=== PATIENT | male | born 1980 | race American Indian/Alaskan Native ===

== ENCOUNTER 2018-10-14 16:42 | Emergency (ER) | payer SELFPAY ==
[2018-10-14] MEDS ORDERED: Sodium Chloride 0.9% 1,000 ML IV ONE (16:58)
[2018-10-14 18:07] LABS: ANION GAP 14.6; CHLORIDE,CL 102 mmol/L (101-111); SODIUM,NA 135 mmol/L (135-145)
[2018-10-14] MEDS ORDERED: Iopamidol 612 MG/ML 100 ML Bottle IVPUSH ONE (18:24)
--- NOTE | 2018-10-14 19:06 | EDM.PDOC ---
ED HPI GENERAL MEDICAL PROBLEM - General Chief Complaint: Skin Complaint Stated Complaint: MAY HAVE INFECTION IN ARM Time Seen by Provider: 10/14/18 19:43 Source of Information: Reports: Patient History Limitations: Reports: No Limitations - History of Present Illness INITIAL COMMENTS - FREE TEXT/NARRATIVE: c/o left forearm infection worsening past few days. Left Arm Pain Score (Numeric/FACES): 8 - Related Data Allergies Allergy/AdvReac Type Severity Reaction Status Date / Time amoxicillin Allergy Other Verified 10/14/18 16:55 Social & Family History - Tobacco Use Smoking Status *Q: Current Every Day Smoker Years of Tobacco use: 20 Packs/Tins Daily: 1 - Recreational Drug Use Recreational Drug Use: Yes Drug Use in Last 12 Months: Yes Recreational Drug Type: Reports: Methamphetamine Recreational Drug Use Frequency: Weekly Recreational Drug Last Use: 10/11/18 ED ROS GENERAL - Review of Systems Review Of Systems: ROS reveals no pertinent complaints other than HPI. ED EXAM, SKIN/RASH Exam: See Below Exam Limited By: No Limitations General Appearance: Alert, WD/WN, Mild Distress, Moderate Distress, Other (pain) Eye Exam: Bilateral Eye: PERRL (pupils ER @ 4mm) Ears: Hearing Grossly Normal Throat/Mouth: Normal Voice, No Airway Compromise Head: Atraumatic Neck: Non-Tender, Full Range of Motion Respiratory/Chest: No Respiratory Distress Cardiovascular: Regular Rate, Rhythm GI/Abdominal: Soft, Non-Tender Extremities: Arm Pain, Limited Range of Motion, Increased Warmth, Redness, Other (left forearm cellulitis with abscess & lymphangitis, NV nwl) Neurological: Alert, Oriented, Normal Cognition, Normal Gait, No Motor/Sensory Deficits Psychiatric: Tearful Skin: Warm, Dry, Normal Color Location, Skin: Upper Extremity, Left Associated features: Warmth, Tenderness, Swelling, Induration, Lymphangitis, Inflammation, Weeping Lymphatic: No Adenopathy ED SKIN PROCEDURES - I&D Site: left forearm Skin Prep: Providone-Iodine (Betadine) Local Anesthesia: Lidocaine: Other (ethyl spray) Area Incised With: 11 Blade Drainage: Purulent, Moderate Amount Probed to Break Up Loculations: No Packed With: None Sterile Dressinx4(s) Complications: No Course - Vital Signs Last Recorded V/S: Last Vital Signs Temp 36.8 C 10/14/18 18:24 Pulse 85 10/14/18 18:24 Resp 18 06/28/19 18:24 BP 144/78 H 10/14/18 18:24 Pulse Ox 99 10/14/18 18:24 - Orders/Labs/Meds Orders: Active Orders 24 hr Category Date Time Status Upper Extremity w Cont Lt [CT] Urgent Exams 10/14/18 18:22 Ordered CULTURE BLOOD [BC] Stat Lab 10/14/18 16:59 Ordered CULTURE BLOOD [BC] Stat Lab 10/14/18 17:39 Results CULTURE WOUND [RM] Stat Lab 10/14/18 18:50 Received Morphine Med 10/14/18 19:40 Once 2 mg IVPUSH ONETIME ONE Ondansetron [Zofran] Med 10/14/18 19:40 Once 4 mg IV ONETIME ONE Vancomycin 1,500 mg Med 10/14/18 18:25 Active Sodium Chloride 0.9% [Normal Saline] 500 ml IV ONETIME Blood Culture x2 Reflex Set [OM.PC] Stat Oth 10/14/18 16:58 Ordered Medication Orders Vancomycin HCl 1,500 mg/ (Sodium Chloride) 500 mls @ 333.333 mls/hr IV ONETIME ONE Stop: 10/14/18 19:54 Labs: Laboratory Tests 10/14/18 10/14/18 10/14/18 Range/Units 17:39 17:39 17:39 WBC 10.2 H (5.0-10.0) 10^3/uL RBC 5.29 (4.6-6.2) 10^6/uL Hgb 15.7 (14.0-18.0) g/dL Hct 45.4 (40.0-54.0) % MCV 85.8 (80-100) fL MCH 29.7 (27.0-34.0) pg MCHC 34.6 (33.0-35.0) g/dL Plt Count 251 (150-450) 10^3/uL Neut % (Auto) 78.2 H (42.2-75.2) % Lymph % (Auto) 11.4 L (20.5-50.1) % [place] % (Auto) 8.3 H (2-8) % Eos % (Auto) 1.9 (1.0-3.0) % Baso % (Auto) 0.2 (0.0-1.0) % Sodium 135 (135-145) mmol/L Potassium 3.6 (3.6-5.0) mmol/L Chloride 102 (101-111) mmol/L Carbon Dioxide 22.0 (21.0-31.0) mmol/L Anion Gap 14.6 BUN 7 (7-18) mg/dL Creatinine 0.9 (0.6-1.3) mg/dL Est Cr Clr Drug Dosing 120.95 mL/min Estimated GFR (MDRD) > 60 BUN/Creatinine Ratio 7.77 Glucose 113 H (74-105) mg/dL Lactic Acid 1.7 (0.5-2.2) mmol/L Calcium 8.7 (8.4-10.2) mg/dl Total Bilirubin 0.6 (0.2-1.0) mg/dL AST 25 (10-42) IU/L ALT 23 (10-60) IU/L Alkaline Phosphatase 137 H (42-121) IU/L Total Protein 7.9 (6.7-8.2) g/dl Albumin 3.8 (3.2-5.5) g/dl Globulin 4.1 Albumin/Globulin Ratio 0.93 Amylase 35 (28-100) U/L Lipase 22 (22-51) U/L Urine Color (YELLOW) Urine Appearance (CLEAR) Urine pH (5.0-9.0) Ur Specific [place] (1.005-1.030) Urine Protein (NEGATIVE) Urine Glucose (UA) (NEGATIVE) Urine Ketones (NEGATIVE) Urine Occult Blood (NEGATIVE) Urine Nitrite (NEGATIVE) Urine Bilirubin (NEGATIVE) Urine Urobilinogen (0.2-1.0) mg/dL Ur Leukocyte Esterase (NEGATIVE) Urine RBC /HPF Urine WBC (0-5/HPF) /HPF Ur Epithelial Cells (NOT SEEN) /HPF Amorphous Sediment (NOT SEEN) /HPF Urine Bacteria (0-FEW/HPF) /HPF Urine Mucus (NOT SEEN) /LPF Urine Opiates Screen (NEGATIVE) Ur Oxycodone Screen (NEGATIVE) Urine Methadone Screen (NEGATIVE) Ur Barbiturates Screen (NEGATIVE) U Tricyclic Antidepress (NEGATIVE) Ur Phencyclidine Scrn (NEGATIVE) Ur Amphetamine Screen (NEGATIVE) U Methamphetamines Scrn (NEGATIVE) Urine MDMA Screen (NEGATIVE) U Benzodiazepines Scrn (NEGATIVE) Urine Cocaine Screen (NEGATIVE) U Marijuana (THC) Screen (NEGATIVE) 10/14/18 10/14/18 Range/Units 18:06 18:06 WBC (5.0-10.0) 10^3/uL RBC (4.6-6.2) 10^6/uL Hgb (14.0-18.0) g/dL Hct (40.0-54.0) % MCV (80-100) fL MCH (27.0-34.0) pg MCHC (33.0-35.0) g/dL Plt Count (150-450) 10^3/uL Neut % (Auto) (42.2-75.2) % Lymph % (Auto) (20.5-50.1) % [place] % (Auto) (2-8) % Eos % (Auto) (1.0-3.0) % Baso % (Auto) (0.0-1.0) % Sodium (135-145) mmol/L Potassium (3.6-5.0) mmol/L Chloride (101-111) mmol/L Carbon Dioxide (21.0-31.0) mmol/L Anion Gap BUN (7-18) mg/dL Creatinine (0.6-1.3) mg/dL Est Cr Clr Drug Dosing mL/min Estimated GFR (MDRD) BUN/Creatinine Ratio Glucose (74-105) mg/dL Lactic Acid (0.5-2.2) mmol/L Calcium (8.4-10.2) mg/dl Total Bilirubin (0.2-1.0) mg/dL AST (10-42) IU/L ALT (10-60) IU/L Alkaline Phosphatase (42-121) IU/L Total Protein (6.7-8.2) g/dl Albumin (3.2-5.5) g/dl Globulin Albumin/Globulin Ratio Amylase (28-100) U/L Lipase (22-51) U/L Urine Color Yellow (YELLOW) Urine Appearance Slightly cloudy (CLEAR) Urine pH 6.0 (5.0-9.0) Ur Specific Ed[place]stein >= 1.030 (1.005-1.030) Urine Protein 30 H (NEGATIVE) Urine Glucose (UA) Negative (NEGATIVE) Urine Ketones Negative (NEGATIVE) Urine Occult Blood Negative (NEGATIVE) Urine Nitrite Negative (NEGATIVE) Urine Bilirubin Small H (NEGATIVE) Urine Urobilinogen 2.0 H (0.2-1.0) mg/dL Ur Leukocyte Esterase Negative (NEGATIVE) Urine RBC 0-5 /HPF Urine WBC 0-5 (0-5/HPF) /HPF Ur Epithelial Cells Rare (NOT SEEN) /HPF Amorphous Sediment Rare (NOT SEEN) /HPF Urine Bacteria Rare (0-FEW/HPF) /HPF Urine Mucus Many H (NOT SEEN) /LPF Urine Opiates Screen Negative (NEGATIVE) Ur Oxycodone Screen Positive H (NEGATIVE) Urine Methadone Screen Negative (NEGATIVE) Ur Barbiturates Screen Negative (NEGATIVE) U Tricyclic Antidepress Negative (NEGATIVE) Ur Phencyclidine Scrn Negative (NEGATIVE) Ur Amphetamine Screen Positive H (NEGATIVE) U Methamphetamines Scrn Positive H (NEGATIVE) Urine MDMA Screen Positive H (NEGATIVE) U Benzodiazepines Scrn Positive H (NEGATIVE) Urine Cocaine Screen Negative (NEGATIVE) U Marijuana (THC) Screen Negative (NEGATIVE) Meds: Medications Generic Name Dose Route Start Last Admin Trade Name Freq PRN Reason Stop Dose Admin Vancomycin HCl 1,500 mg/ 500 mls @ 333.333 mls/hr 10/14/18 18:25 Sodium Chloride IV 10/14/18 19:54 ONETIME ONE Discontinued Medications Generic Name Dose Route Start Last Admin Trade Name Freq PRN Reason Stop Dose Admin Sodium Chloride 1,000 mls @ 500 mls/hr 10/14/18 16:58 10/14/18 17:35 Normal Saline IV 10/14/18 18:57 500 mls/hr .BOLUS ONE Administration Iopamidol 100 ml 10/14/18 18:24 Isovue-300 (61%) IVPUSH 10/14/18 18:25 ONETIME ONE - Re-Assessments/Exams Free Text/Narrative Re-Assessment/Exam: 10/14/18 19:41 case discussed with pt re AMA due to family issues. pt & girl friend both understood. they are both adviced to return is things get worse. Departure - Departure Time of Disposition: 19:42 Disposition: Against Medical Advice 07 Condition: Fair Clinical Impression: Abscess - Discharge Information - My Orders Last 24 Hours: My Active Orders 10/14/18 19:40 Morphine 2 mg IVPUSH ONETIME ONE Ondansetron [Zofran] 4 mg IV ONETIME ONE - Assessment/Plan Last 24 Hours: My Active Orders 10/14/18 19:40 Morphine 2 mg IVPUSH ONETIME ONE Ondansetron [Zofran] 4 mg IV ONETIME ONE
[2018-10-14] MEDS ORDERED: Morphine 2 MG/ML Syringe IVPUSH ONE (19:40)
[2018-10-14] MEDS ORDERED: Ondansetron 4 MG/2 ML SDV IV ONE (19:40)
== END 2018-10-14 19:55 | disposition left against medical advice (07) ==
LOC: DL.ED 16:42
DX: L02.414 Cutaneous abscess of left upper limb (principal); F17.210 Nicotine dependence, cigarettes, uncomplicated; Z88.1 Allergy status to other antibiotic agents
CPT/HCPCS: 10060; 36415; 80053; 80305; 81001; 82150; 83605; 83690; 85025; 87040; 87070; 87077; 87186; 96360; 96361; 99283; J7030

== ENCOUNTER 2021-01-21 15:21 | Emergency (ER) | payer SELFPAY ==
[2021-01-21] MEDS ORDERED: Bacitracin Oint 1 GM U/D Packet TOP ONE (16:01)
--- NOTE | 2021-01-21 16:03 | EDM.PDOC ---
ED HPI GENERAL MEDICAL PROBLEM - General Chief Complaint: General Stated Complaint: MED CLEARANCE - Related Data Allergies Allergy/AdvReac Type Severity Reaction Status Date / Time amoxicillin Allergy Other Verified 10/14/18 16:55 Course - Orders/Labs/Meds Meds: Medications Discontinued Medications Generic Name Dose Route Start Last Admin Trade Name Freq PRN Reason Stop Dose Admin Bacitracin 1 dose 01/21/21 16:01 Bacitracin Oint 1 Gm U/D Packet TOP 01/21/21 16:02 ONETIME ONE Departure - Discharge Information
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
== END 2021-01-21 16:15 ==
LOC: DL.ED 15:21
DX: T75.4XXA Electrocution, initial encounter (principal); S31.030A Puncture wound without foreign body of lower back and pelvis without penetration into retroperitoneum, initial encounter; Z88.0 Allergy status to penicillin; W86.8XXA Exposure to other electric current, initial encounter
CPT/HCPCS: 99283